=== PATIENT | female | born 1945 | race Caucasian/White ===

== ENCOUNTER 2017-09-24 19:01 | Emergency (ER) | payer MEDICARE ==
[~2017-09-24] VITALS: Ht 162.6 cm; Wt 59.6 kg
[2017-09-24 19:09] VITALS: BP 177/83; PULSE 92; RESP 18; TEMP 98.8; O2SAT 97
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
== END 2017-09-24 20:34 | disposition home or self-care (01) ==
LOC: PHEFT 19:01
DX: S81.811A Laceration without foreign body, right lower leg, initial encounter (principal); W45.8XXA Other foreign body or object entering through skin, initial encounter; W22.8XXA Striking against or struck by other objects, initial encounter; Y93.55 Activity, bike riding
CPT/HCPCS: 12002